=== PATIENT | male | born 1965 | race African-American/Black ===

== ENCOUNTER 2017-02-08 09:35 | Inpatient (IN) | payer OTHER ==
[2017-02-08] VITALS (7 sets, daily range): BP systolic 138–150
[~2017-02-08] VITALS: Ht 188 cm; Wt 103.0 kg
--- NOTE | 2017-02-08 09:35 | NUR ---
Placed in room 08. Placed on information officer, blood pressure machine and pulse oximeter. To gown for exam. Side rails up. Report given to KRISTA Taylor.
--- NOTE | 2017-02-08 09:54 | NUR ---
# 20 gauge angiocath placed to LAC . Use of asceptic technique. Opsite placed over site. Blood return noted. Blood for lab drawn from site. Flushed with 10 cc of normal saline. No evidence of infiltration noted. Patient tolerated well.
[2017-02-08] MEDS ORDERED: ASPIRIN 81 MG TAB.CHEW PO ONE (10:00)
[2017-02-08] MEDS ORDERED: NITROGLYCERIN 1 INCH (GM) OINT. TP ONE (10:00)
--- NOTE | 2017-02-08 10:00 | NUR ---
Dr. Haile at bedside for evaluation
--- NOTE | 2017-02-08 10:01 | NUR ---
Pt presents to ED c/o chest pain since last evening w/ h/o of same last yr. Pt aaox 4 no acute distress noted .Pt denies SOB. Pt medicated per MD ordrs. Pt tolerated well. will continue to monitor.
[2017-02-08 10:15] LABS: BASOPHILS % (AUTO) 0.6 % (0.0-2.0); EOSINOPHILS # (AUTO) 0.1 K/uL (0.0-0.4); EOSINOPHILS % (AUTO) 2.9 % (0.0-4.0); HEMATOCRIT 48.4 % (36-54); HEMOGLOBIN 14.8 g/dL (14.0-18.0); LYMPHOCYTES # (AUTO) 1.2 K/uL (1.0-5.5); LYMPHOCYTES % (AUTO) 28.7 % (20.5-51.5); MEAN CORPUSCULAR HEMOGLOBIN 23 pg (27-31); MEAN CORPUSCULAR HGB CONC 31 % (32-36); MEAN CORPUSCULAR VOLUME 75 fL (79.0-98.0); MONOCYTES # (AUTO) 0.3 K/uL (0.0-1.0); MONOCYTES % (AUTO) 7.8 % (1.7-9.3); NEUTROPHILS # (AUTO) 2.5 K/uL (1.8-7.7); PLATELET COUNT (AUTO) 205 K/uL (130-430); RED BLOOD CELL COUNT(AUTO) 6.49 MIL/uL (4.2-6.2); RED CELL DISTRIBUTION WIDTH 13.3 % (9.0-15.0); WHITE BLOOD COUNT (AUTO) 4.1 K/uL (4.8-10.8)
[2017-02-08 10:17] LABS: CALCIUM 8.9 mg/dL (8.4-11.0); CREATININE 1.31 mg/dL (0.55-1.30); POTASSIUM 3.8 mmol/L (3.5-5.1)
[2017-02-08 10:22] LABS: ALBUMIN 3.9 g/dL (3.4-4.8); TOTAL BILIRUBIN 0.8 mg/dL (0.0-1.0); TOTAL PROTEIN, SERUM 7.5 g/dL (6.4-8.3)
[2017-02-08] MEDS ORDERED: HYG25 PO (11:44)
[2017-02-08] MEDS ORDERED: METOPROLOL TARTRATE 5 MG/5 ML VIAL IVP ONE (11:45)
--- NOTE | 2017-02-08 11:45 | NUR ---
Pt medciated for elevated BP. Pt tolerated well.
[2017-02-08 11:51] LABS: BILIRUBIN,URINE NEGATIVE (NEGATIVE); BLOOD, URINE NEGATIVE (NEGATIVE); CLARITY/URINE CLEAR (CLEAR); COLOR,URINE YELLOW (YELLOW); GLUCOSE,URINE NEGATIVE (NEGATIVE); KETONES,URINE NEGATIVE (NEGATIVE); LEUKOCYTE ESTERASE ,URINE NEGATIVE (NEGATIVE); NITRITE, URINE NEGATIVE (NEGATIVE); PH,URINE 6.5 (5.0-8.0); PROTEIN URINE NEGATIVE (NEGATIVE); UROBILINOGEN,URINE 0.2 (0.2-1.0)
[2017-02-08] MEDS ORDERED: NITROGLYCERIN 0.4 MG TAB.SUBL SL PRN (12:15)
--- NOTE | 2017-02-08 12:30 | NUR ---
5Patient will be admitted to care of . Admitted to telemetry unit. Will go to room 108A. Belongings list completed. Summary report printed. Report will be given at bedside.
--- NOTE | 2017-02-08 12:36 | NUR ---
ADMISSION NOTE Received patient from ER via gurney. Patient admitted with diagnosis of . Patient is awake, alert, oriented X 4. Patient oriented to hospital room, call light, toileting, pain management and safety-teach back done. Patient informed that Brandy will be nurse and that their room number is 108a. Personal belongings checked and Belongings List documented. Call light within reach.
--- NOTE | 2017-02-08 13:01 | NUR ---
CARDIAC CONSULT,CALLED IN REASON CHEST PAIN SPOKE TO WILLIAM
--- NOTE | 2017-02-08 13:02 | NUR ---
GREETED PATIENT. PATIENT DENIES ANY CP AT THIS TIME. STATES HE HAD IT AT 0100 TODAY BUT IT HAS SINCE DIMINISHED AND HE DENIES ANY SOB, DIZZINESS OR WEAKNESS. REPORTS FEELING HUNGRY HE MISSED BREAKFAST AND LUNCH. IS AT BEDSIDE. LUNGS ARE CLEAR, HEART TONES ARE GOOD. VITALS WNL. NO EDEMA NOTED. PATIENT REFUSING TO REMOVE TENNIS SHOES WHILE IN BED. ALERT, ORIENTED. ORIENTED TO ROOM AND CALL LIGHT. ADVISED PATIENT THERE WILL LIKELY BE MORE TESTS RUN ON HIM BY CARDIOLOGY AND WE WILL KEEP HIM UP TO DATE WITH PLAN OF CARE. PATIENT VERBALIZED UNDERSTANDING.
--- NOTE | 2017-02-08 13:23 | NUR ---
LEFT MESSAGE WITH DIETARY FOR CARDIAC LUNCH TRAY
--- NOTE | 2017-02-08 13:47 | NUR ---
PATIENT GIVEN TRAY OF JELLO, PUDDING AND TWO HALF SANDWICHES. HERBAL TEA ORDERED WELL.
[2017-02-08] MEDS ORDERED: PANTOPRAZOLE GRANULES PACKET 40 MG GT ONE (14:30)
--- NOTE | 2017-02-08 15:30 | NUR ---
PATIENT MEDICATED WITH PROTONIX. EXPLAINED USE AND INDICATION FOR MEDICATION TO PATIENT. IS NO LONGER AT BEDSIDE. PATIENT STATES SHE WENT HOME TO REST
--- NOTE | 2017-02-08 16:09 | NUR ---
SPOKE W DR HERNANDEZ REGARDING CARDIO CONSULT. READ TROPONIN AND EKG RESULTS, REPORTED PATIENT'S CURRENT CP LEVEL OF 0/10 AND MEDS GIVEN IN ED. ORDERS FOR ECHOCARDIOGRAM GIVEN AND STATED HE WILL BE IN TO SEE THE PATIENT TOMORROW MORNING
--- NOTE | 2017-02-08 19:10 | NUR ---
CLOSING NOTE PATIENT REMAINS ALERT, ORIENTED, MILD HEADACHE. CARDIO CONSULT TO BE SEEN TOMORROW. 2D ECHO ORDERED. PATIENT CONTINUES TO REPORT NO CHEST PAIN OR SOB. NO SIGNS OF DISTRESS. REPORT GIVEN TO ONCOMING SHIFT
--- NOTE | 2017-02-08 19:15 | NUR ---
change of shift.pt.prsent stable status,2d-echo in progress;ef=60%.pt.presents brp,room air status. no c/o pain;chest,nor sob upon escertion.family@the bedside.
[2017-02-08] MEDS: METOPROLOL TARTRATE 25 MG TABLET PO SCH (20:51)
--- NOTE | 2017-02-08 21:00 | NUR ---
2100p medication administered:lopressor.i have apprised the pt.of the indication of the medication. i have apprised the pt.that has ordered lovenox:for dvt prophylaxis.to be administered in the am: 02/09/17 @0900 am.
--- NOTE | 2017-02-09 | NUR ---
pt.presents quiescent affect;calm,asleep.no distress/discomfort cardio monitor presents nsr .
[2017-02-09 00:29] VITALS: BP_SYST 137
--- NOTE | 2017-02-09 04:00 | NUR ---
pt.assessed.v/s assessed.pt.presents stable status.no c/o pain;chest nor sob upon excertion. no request @this hour.
[2017-02-09 04:55] VITALS: BP_SYST 161
[2017-02-09 08:00] VITALS: BP_SYST 151
--- NOTE | 2017-02-09 08:00 | NUR ---
NOTE PT RESTING IN BED, SLEEPY AT THIS TIME. AAOX4 WHEN WOKEN UP. NO SOB/RESP DISTRESS OR CHEST PAIN/DISCOMFORT NOTED. TELE UNIT ATTACHED AND TRANSMITTING WELL. IV IN LEFT AC INTACT AND PATENT AT THIS TIME. NO NEEDS NOTED. PT STATES HE WILL EAT HIS BREAKFAST IN A LITTLE WHILE. CALL LIGHT WITHIN REACH.
[2017-02-09] MEDS: METOPROLOL TARTRATE 25 MG TABLET PO SCH (08:27)
[2017-02-09] MEDS ORDERED: ENOXAPARIN SODIUM 40 MG/0.4 ML SYRINGE SUBCUT SCH (09:00)
[2017-02-09] MEDS ORDERED: ASPIRIN 81 MG TAB.CHEW PO SCH (09:00)
[2017-02-09] MEDS ORDERED: CHLORTHALIDONE 25 MG TABLET (HYGROTON) PO SCH (09:00)
--- NOTE | 2017-02-09 10:15 | NUR ---
NOTE DR RODRIGUEZ AND DR PERRY ON THE FLOOR AND ASSESSMENT OF PT WAS COMPLETED. DISCHARGE ORDER TO BE WRITTEN AT THIS TIME. TELE UNIT DC'D AND RETURNED TO IT SENIOR ANALYST AT THIS TIME. VERBAL DISCHARGE ORDERS GIVEN TO PT BY MD'S. QUESTION/CONCERNS WERE ANSWERED AT THIS TIME. CALL LIGHT WITHIN REACH.
[2017-02-09 10:50] VITALS: BP_SYST 140
--- NOTE | 2017-02-09 11:20 | NUR ---
NOTE PT'S LEFT AC IV WAS DC'D. CATH INTACT. NO SWELLING/REDNESS/BLEEDING/DRAINAGE NOTED AT THIS TIME. PT DRESSED IN STREET CLOTHES AND PACKED ALL BELONGINGS. PT AND HIS CHECKED SIDE TABLE AND DRAWERS FOR BELONGINGS. NO CHEST PAIN/DISCOMFORT NOTED AT THIS TIME. PT STABLE.
--- NOTE | 2017-02-09 11:30 | NUR ---
NOTE PT OFF THE FLOOR WITH ALL HIS BELONGINGS AND PAPERWORK, WITH BY HIS SIDE. PT STABLE. NO CHEST PAIN/DISCOMFORT NOTED.
--- NOTE | 2017-02-12 16:24 | NUR ---
Discharge Follow Up Phone Call HEARING SCREENER phoned patient, . 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 Patient stated he has no questions or concerns. No further follow up needed.
== END 2017-02-09 11:30 | disposition home or self-care (01) | DRG 206 ==
LOC: SED 09:35 → STU 12:12
DX: M94.0 Chondrocostal junction syndrome [Tietze] (principal); I12.9 Hypertensive chronic kidney disease with stage 1 through stage 4 chronic kidney disease, or unspecified chronic kidney disease; N18.3 Chronic kidney disease, stage 3 (moderate); Z79.899 Other long term (current) drug therapy; Z82.49 Family history of ischemic heart disease and other diseases of the circulatory system
CPT/HCPCS: 36415; 71010; 80053; 81003; 83880; 84484; 85025; 85610-TC; 93005; 93306; 96374; 99285; J1650; J3490